=== PATIENT | female | born 1955 | race Caucasian/White ===

== ENCOUNTER 2017-01-18 06:28 | Day surgery (SDC) | payer OTHER ==
[2017-01-18] MEDS ORDERED: FENTANYL CITRATE INJ/PF 100 MCG/2 ML AMPUL ONE (06:47)
[2017-01-18] MEDS ORDERED: LIDOCAINE 2% INJ-PF (20 MG/ML) 10 ML AMPUL ONE (06:47)
[2017-01-18] MEDS ORDERED: MIDAZOLAM 2 MG/2 ML INJ ONE (06:47)
[2017-01-18] MEDS ORDERED: PROPOFOL INJ 200 MG/20 ML VIAL IV ONE (06:48)
[2017-01-18] MEDS ORDERED: LIDOCAINE 2%/EPINEPHRINE INJ 20 ML VIAL ONE (07:18)
[2017-01-18] MEDS ORDERED: TETRACAINE HCL 0.5% OPH SOLN 2 ML ONE (07:18)
[2017-01-18] MEDS ORDERED: POVIDONE-IODINE 5% OPH PREP SOLN 30 ML ONE (07:18)
[2017-01-18] MEDS ORDERED: BUPIVACAINE HCL 0.75% INJ/PF (7.5 MG/1 ML) 10 ML SDV ONE (07:18)
[2017-01-18] MEDS ORDERED: ONDANSETRON HCL INJ/PF 4 MG/2 ML SDV ONE (07:25)
[2017-01-18] MEDS: THROMBIN (BOVINE) TOPICAL 5000 UNIT VIAL ONE ×2 (08:10)
[2017-01-18] MEDS: NEO/POLYMYX B SULF/DEXAMETH OPH OINTMENT 3.5 GM ONE ×2 (08:56)
--- NOTE | 2017-01-21 12:50 | [facility] DISCHARGE SUMMARY E ---
[facility] Discharge Summary NAME: YUNIOR RAO AGE: 61Y ADMITTED: 01/18/2017 DISCHARGED: 01/18/2017 DIAGNOSIS: Dermatochalasis of bilateral upper lids. SUMMARY: This is a 61-year-old female who underwent bilateral upper lid blepharoplasty. She underwent surgery because she was having difficulty seeing in her peripheral vision and demonstrated significant field loss on her visual earl. Photos were also submitted. DISCHARGE INSTRUCTIONS: Patient is to be on a regular diet, no bending at her waist, and no heavy lifting. She should use ice 10 minutes of every hour for the first day while awake and then 4 times daily after that. Maxitrol ointment to apply to the lids twice daily. The patient is to see me for a 1-week visit to remove the sutures and call in sooner if they have any concerns. DICTATING PHYSICIAN: BRITTANY ISABEL M.D. [id number] PHY#: [id number] ID: [id number] JOB#: [id number] ACCT: [id number] cc:BRITTANY ISABEL M.D. >
--- NOTE | 2017-01-21 12:50 | [facility] OPERATIVE REPORT E ---
[facility] Operative Report NAME: YUNIOR RAO AGE: 61Y DATE OF SURGERY: 01/18/2017 ROOM: PREOPERATIVE DIAGNOSIS: Bilateral upper lid dermatochalasis. POSTOPERATIVE DIAGNOSIS: Bilateral upper lid dermatochalasis. PROCEDURE: Bilateral upper lid blepharoplasty, functional. SURGEON: BRITTANY ISABEL M.D. ANESTHESIA: 2% lidocaine with epinephrine as well as MAC sedation. ESTIMATED BLOOD LOSS: Less than 5 mL. COMPLICATIONS: None. DESCRIPTION OF OPERATIVE REPORT: After obtaining appropriate informed consent, the patient was brought back to the operating room. She was undergoing a procedure of bilateral upper lid blepharoplasty because her lids were blocking her peripheral vision and she had to turn her head to the side to see things in that direction. The lids were prepped and draped in sterile fashion with Betadine and sterile field was set up. Attention was directed to the amount of skin to be removed. A skin marker was used to outline the lower eyelid crease followed by the upper margins. Once this was outlined and found to be the appropriate amount to alleviate her peripheral field loss but not to cause lagophthalmos, the skin was then injected with 2% lidocaine with epinephrine. Pressure was applied. The same procedure was done on both upper lids to outline the skin needed to be removed. Following this a 15 blade was used to excise along the previously outlined skin markings. The skin was then dissected with bleph scissors and 0.5 forceps. A strip of orbicularis was removed with bleph scissors and forceps as well. Hemostasis was then achieved with cautery. A thrombin-soaked sponge was then placed over the defect and allowed to soak for 5 minutes, and the other lid was addressed in the same manner. Following this an 8-0 silk was used to make 2 separate simple interrupted sutures through orbicularis skin to form the eyelid crease. An 8-0 nylon was used to run through the skin to close the incision. The excision was well opposed and it was in excellent position. This was repeated on the other lid as well. Maxitrol ointment was then applied to the lid margins. The patient was brought back to the postop recovery in stable condition. DICTATING PHYSICIAN: BRITTANY ISABEL M.D. [id number] PHY#: [id number] ID: [id number] JOB#: [id number] ACCT: [id number] cc:BRITTANY ISABEL M.D. >
== END 2017-01-18 09:40 | disposition home or self-care (01) ==
LOC: SC 06:28
PROVIDERS: ATTEND Internal Medicine
PROC: 080N0ZZ Alteration of Right Upper Eyelid, Open Approach (ICD-10-PCS; 2017-01-18)
PROC: 080P0ZZ Alteration of Left Upper Eyelid, Open Approach (ICD-10-PCS; principal; 2017-01-18 07:30)
DX: H02.831 Dermatochalasis of right upper eyelid (principal); H02.834 Dermatochalasis of left upper eyelid; E11.9 Type 2 diabetes mellitus without complications; F17.210 Nicotine dependence, cigarettes, uncomplicated; Z79.4 Long term (current) use of insulin
CPT/HCPCS: 15823; 82962; J2250; J3490 ×6; J3010; J2405; J2704; 103

== ENCOUNTER → 2017-03-08 | Outpatient (CLI) | payer OTHER ==
--- NOTE | 2017-03-08 13:52 | WOMENS IMAGING REPORT ---
EXAM DESCRIPTION: BILAT SCREENING MAMMO W/CAD COMPLETED DATE/TIME: 03/08/2017 7:38 am REASON FOR STUDY: SCREENING MAMMO Z12.31 ENCNTR SCREEN MAMMOGRAM FOR MALIGNANT NEOPLASM OF IZABELA COMPARISON: 01/10/2016 TECHNIQUE: Standard craniocaudal and mediolateral oblique views of each breast recorded using digita l acquisition. LIMITATIONS: None. FINDINGS: No masses, calcifications or architectural distortion. No areas of suspicion. Read with the assistance of CAD. .[facility] - R2 [employer] Version 1.3 .[facility] - R2 Cenova Version 1.3 .[facility] - R2 Cenova Version 2.4 .[facility] - R2 Cenova Version 2.4 .[facility] - R2 [employer] Version 9.2 IMPRESSION: NORMAL MAMMOGRAM. BIRADS 1. BREAST DENSITY: b. There are scattered areas of fibroglandular density. BIRAD: 1 NEGATIVE RECOMMENDATION: ROUTINE SCREENING Please consider bilateral screening tomosynthesis in February 2018 COMMENT: The patient has been notified of the results by letter per SA requirements. Additional no tification policies are in place for contacting patient with suspicious or incomplete findings. Quality ID #[id number]: The [employer] recommends an annual screening mammogram for women aged 40 years or over. This facility utilizes a reminder system to ensure that all patients receive reminder letters, and/or direct phone calls for appointments. This includes reminders for routine scr eening mammograms, diagnostic mammograms, or other Breast Imaging Interventions when appropriate. Th is patient will be placed in the appropriate reminder system. The [employer] (ACR) has developed recommendations for screening MRI of the breast s in certain patient populations, to be used in conjunction with mammography. Breast MRI surveillanc e may be appropriate for women with more than 20% lifetime risk of developing breast cancer as deter mined by genetic testing, significant family history of the disease, or history of mantle radiation f or Hodgkins Disease. ACR Practice Guidelines 2008. TECHNICAL DOCUMENTATION: FINDING NUMBER: (1) ASSESSMENT: (1) JOB ID: [id number] [employer]- All Rights Reserved
== END ==
LOC: WI 07:20
PROVIDERS: ATTEND Physician Assistant
DX: Z12.31 Encounter for screening mammogram for malignant neoplasm of breast (principal)
CPT/HCPCS: 77067; G0202

== ENCOUNTER 2017-06-12 01:29 | Emergency (ER) | payer OTHER ==
[2017-06-12] MEDS ORDERED: NORMAL SALINE 1000 ML 1,000 ML IV ONE (02:13)
[2017-06-12] MEDS ORDERED: ONDANSETRON HCL INJ/PF 4 MG/2 ML SDV IV ONE (02:13)
[2017-06-12] MEDS ORDERED: HYDROMORPHONE HCL INJ/PF 2 MG/ML AMPULE IV ONE (02:13)
--- NOTE | 2017-06-12 02:15 | ER Document Report ---
ED GI/ - General Chief Complaint: Epigastric Pain Stated Complaint: ABDOMINAL PAIN Time Seen by Provider: 06/12/17 02:07 Notes: Patient is a 61-year-old female that comes emergency department for chief complaint of upper abdominal pain that started this evening after dinner. 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 She states she has never been admitted for pancreatitis before. She usually takes gabapentin for it and it works, but pain is worse tonight. She has had a cholecystectomy. She denies alcohol or smoking. She denies any new medications other than recently taking Levaquin and prednisone for pneumonia 2 weeks ago. She is already on a proton pump inhibitor. TRAVEL OUTSIDE OF THE [place] IN LAST 30 DAYS: No - Related Data Allergies/Adverse Reactions: iodine [Iodine] Allergy (Intermediate, Verified 06/12/17 03:14) latex Allergy (Intermediate, Verified 06/12/17 03:14) Skin Redness Shellfish * [Shellfish] Allergy (Verified 06/12/17 03:14) Past Medical History - General Information source: Patient - Social History Smoking Status: Never Smoker Frequency of alcohol use: None Drug Abuse: None Lives with: Family Family History: CAD, DM, Hypertension - Past Medical History Cardiac Medical History: Reports: Hx Coronary Artery Disease - cath negative stress test showed something Denies: Hx Heart Attack, Hx Hypertension Pulmonary Medical History: Denies: Hx Asthma, Hx Tuberculosis Neurological Medical History: Denies: Hx Cerebrovascular Accident, Hx Seizures GI Medical History: Reports: Hx Gastroesophageal Reflux Disease, Hx Endoscopic Retrograde Cholangio. Denies: Hx Hepatitis, Hx Hiatal Hernia, Hx Ulcer Traumatic Medical History: Reports: Hx Fractures Infectious Medical History: Denies: Hx Hepatitis Past Surgical History: Reports: Hx Cardiac Catheterization - neg, Hx Cholecystectomy, Hx Hysterectomy, Hx Orthopedic Surgery - knee right. Denies: Hx Mastectomy, Hx Open Heart Surgery, Hx Pacemaker - Immunizations Immunizations up to date: Yes Hx Diphtheria, Pertussis, Tetanus Vaccination: Yes Hx Pneumococcal Vaccination: 04/29/06 Review of Systems - Review of Systems Constitutional: No symptoms reported EENT: No symptoms reported Cardiovascular: No symptoms reported Respiratory: No symptoms reported Gastrointestinal: See HPI Genitourinary: No symptoms reported Female Genitourinary: No symptoms reported Musculoskeletal: No symptoms reported Skin: No symptoms reported Hematologic/Lymphatic: No symptoms reported Neurological/Psychological: No symptoms reported Physical Exam - Vital signs Vitals: Temp Pulse Resp BP Pulse Ox 97.6 F 89 16 117/70 97 06/12/17 02:00 06/12/17 02:00 06/12/17 02:00 06/12/17 02:00 06/12/17 02:00 Interpretation: Normal - General General appearance: Appears well, Alert In distress: None - HEENT Head: Normocephalic, Atraumatic Eyes: Normal Pupils: PERRL - Respiratory Respiratory status: No respiratory distress Chest status: Nontender Breath sounds: Normal Chest palpation: Normal - Cardiovascular Rhythm: Regular Heart sounds: Normal auscultation Murmur: No - Abdominal Inspection: Normal Distension: No distension Bowel sounds: Normal Tenderness: Tender - Epigastric tenderness, some left upper quadrant tenderness , right lower quadrant is benign, lower abdomen is benign. No guarding, rigidity, or rebound tenderness. Organomegaly: No organomegaly - Back Back: Normal, Nontender. No: Tender - Extremities General upper extremity: Normal inspection, Nontender, Normal ROM, Normal strength General lower extremity: Normal inspection, Nontender, Normal ROM, Normal strength. No: Edema - Neurological Neuro grossly intact: Yes Cognition: Normal Orientation: AAOx4 Maurisio Coma Scale Eye Opening: Spontaneous [place] Coma Scale Verbal: Oriented Maurisio Coma Scale Motor: Obeys Commands Maurisio Coma Scale Total: 15 Speech: Normal Motor strength normal: LUE, RUE, LLE, RLE Sensory: Normal - Psychological Associated symptoms: Normal affect, Normal mood - Skin Skin Temperature: Warm Skin Moisture: Dry Skin Color: Normal Course - Re-evaluation Re-evalutation: Patient is well-appearing, has epigastric and left upper quadrant tenderness on exam but no guarding. Unremarkable vital signs. Symptoms resolved after medications. CBC, chemistry, lipase, urinalysis are all unremarkable. Reevaluated patient, soft nontender abdomen. She is asking to go home. I do not feel that patient's examination or workup indicates need for CAT scan to rule out abscess or other acute etiology. Patient tolerating fluids by mouth without any difficulty. Discussed follow-up and return precautions in detail. Patient states satisfaction and agreement. - Vital Signs Vital signs: Temp Pulse Resp BP Pulse Ox 98.0 F 89 20 100/77 97 06/12/17 04:40 06/12/17 02:00 06/12/17 04:41 06/12/17 04:41 06/12/17 04:41 - Laboratory Result Diagrams: 06/12/17 00:40 06/12/17 00:40 Laboratory results interpreted by me: 06/12/17 06/12/17 06/12/17 00:40 00:40 03:05 RDW 14.3 H AST 54 H Urine Urobilinogen 2.0 H Discharge - Discharge Clinical Impression: Epigastric pain Condition: Stable Disposition: HOME, SELF-CARE Additional Instructions: Your laboratory workup does not show any abnormalities, the exact cause of your upper abdominal pain is uncertain at this time. Recommend clear liquid diet for the next day, start with bland food and slowly progress, take your home medications including Zofran if needed, I also recommend continuing Dexilant and consider adding either Pepcid or Zantac to this for the next several days. Follow-up with your provider. Return if you worsen including vomiting, returned or worsening pain, fever of 100.4 or greater, black stools, or any other concerning symptoms. Referrals: CHARITY ESCAMILLA MD [Primary Care Provider] - Follow up as needed
[2017-06-12 02:22] LABS: ABSOLUTE EOSINOPHILS # (AUTO) 0.2 10^3/uL (0.0-0.6); ABSOLUTE LYMPHOCYTES (AUTO) 2.6 10^3/uL (0.5-4.7); ABSOLUTE MONOCYTES (AUTO) 0.6 10^3/uL (0.1-1.4); ABSOLUTE NEUT (AUTO) 5.7 10^3/uL (1.7-8.2); BASOPHILS % (AUTO) 0.2 % (0-2); EOSINOPHILS % (AUTO) 1.7 % (0-6); HEMATOCRIT 43.7 % (36.0-47.0); HEMOGLOBIN 14.5 g/dL (12.0-15.5); LYMPHOCYTES % (AUTO) 29.1 % (13-45); MEAN CORPUSCULAR HEMOGLOBIN 29.5 pg (27.0-33.4); MEAN CORPUSCULAR HGB CONC 33.2 g/dL (32.0-36.0); MEAN CORPUSCULAR VOLUME 89 fl (80-97); MONOCYTES % (AUTO) 6.8 % (3-13); PLATELET COUNT 274 10^3/uL (150-450); RED BLOOD COUNT 4.91 10^6/uL (3.72-5.28); RED CELL DISTRIBUTION WIDTH 14.3 % (11.5-14.0); SEGMENTED NEUTROPHILS % (AUTO) 62.2 % (42-78); TOTAL CELLS COUNTED % (AUTO) 100 %; WHITE BLOOD COUNT 9.1 10^3/uL (4.0-10.5)
[2017-06-12 02:29] LABS: ALANINE AMINOTRANSFERASE 51 U/L (9-52); ALBUMIN 4.4 g/dL (3.5-5.0); ALKALINE PHOSPHATASE 93 U/L (38-126); ANION GAP 11 (5-19); ASPARTATE AMINO TRANSFERASE 54 U/L (14-36); BILIRUBIN,DIRECT 0.4 mg/dL (0.0-0.4); BILIRUBIN,TOTAL 0.4 mg/dL (0.2-1.3); BLOOD UREA NITROGEN 11 mg/dL (7-20); CALCIUM 9.5 mg/dL (8.4-10.2); CARBON DIOXIDE 29 mmol/L (22-30); CHLORIDE 101 mmol/L (98-107); GLUCOSE 91 mg/dL (75-110); LIPASE 53.8 U/L (23-300); POTASSIUM 4.4 mmol/L (3.6-5.0); SODIUM 141.1 mmol/L (137-145); TOTAL PROTEIN 7.7 g/dL (6.3-8.2)
[2017-06-12 03:49] LABS: APPEARANCE,URINE SLIGHTLY-CLOUDY; BILIRUBIN,URINE NEGATIVE (NEGATIVE); COLOR,URINE YELLOW; GLUCOSE, URINE NEGATIVE (NEGATIVE); KETONES,URINE NEGATIVE (NEGATIVE); LEUKOCYTE ESTERASE,URINE NEGATIVE (NEGATIVE); NITRITE,URINE NEGATIVE (NEGATIVE); PROTEIN,URINE NEGATIVE (NEGATIVE); URINE SPECIFIC GRAVITY 1.015
[2017-06-12 04:52] VITALS: BP 100/77
== END 2017-06-12 04:45 | disposition home or self-care (01) ==
LOC: ER 01:29
DX: R10.13 Epigastric pain (principal); R10.10 Upper abdominal pain, unspecified; I25.10 Atherosclerotic heart disease of native coronary artery without angina pectoris; Z91.040 Latex allergy status; Z91.013 Allergy to seafood; Z90.49 Acquired absence of other specified parts of digestive tract; Z90.710 Acquired absence of both cervix and uterus
CPT/HCPCS: 99284; 96361; 96374; 96375; 36415; 83690; 85025; 80053; 81001; J1170; J2405; J7030

== ENCOUNTER → 2019-05-22 | Outpatient (CLI) | payer OTHER ==
--- NOTE | 2019-05-22 11:31 | WOMENS IMAGING REPORT ---
EXAM DESCRIPTION: 3D SCREENING MAMMO BILAT COMPLETED DATE/TIME: 05/22/2019 7:56 am REASON FOR STUDY: Z12.31 SCREENING MAMMO Z12.31 ENCNTR SCREEN MAMMOGRAM FOR MALIGNANT NEOPLASM OF B RE COMPARISON: 2015, 2016 EXAM PARAMETERS: Views: Standard craniocaudal and mediolateral oblique views of each breast recorded using digital acquisition and breast tomosynthesis. Read with the assistance of CAD. .[facility] - R2 [employer] Version 1.3 LIMITATIONS: None. FINDINGS: No suspicious masses, suspicious calcifications or architectural distortion. No areas of c oncern. IMPRESSION: NEGATIVE MAMMOGRAM. BIRADS 1. BREAST DENSITY: b. There are scattered areas of fibroglandular density. BIRAD: ASSESSMENT: 1 NEGATIVE RECOMMENDATION: ROUTINE SCREENING Please continue yearly bilateral screening mammography/tomosynthesis in April 2020 COMMENT: The patient has been notified of the results by letter per SA requirements. Additional no tification policies are in place for contacting patient with suspicious or incomplete findings. Quality ID #[id number]: The [employer] recommends an annual screening mammogram for women aged 40 years or over. This facility utilizes a reminder system to ensure that all patients receive reminder letters, and/or direct phone calls for appointments. This includes reminders for routine scr eening mammograms, diagnostic mammograms, or other Breast Imaging Interventions when appropriate. Th is patient will be placed in the appropriate reminder system. TECHNICAL DOCUMENTATION: FINDING NUMBER: (1) ASSESSMENT: (1) JOB ID: [id number] [employer]- All Rights Reserved Reading location - IP/workstation name: [email or web address]
== END ==
LOC: WI 07:25
PROVIDERS: ATTEND Physician Assistant
DX: Z12.31 Encounter for screening mammogram for malignant neoplasm of breast (principal)
CPT/HCPCS: 77063; 77067